=== PATIENT | female | born 1985 | race African-American/Black ===

== ENCOUNTER 2017-09-25 22:39 | Emergency (ER) | payer MEDICAID ==
[~2017-09-25] VITALS: Ht 180.3 cm; Wt 71.0 kg
[2017-09-25 22:51] VITALS: BP 108/65
== END 2017-09-26 02:53 | disposition left against medical advice (07) ==
LOC: ER 22:51
DX: Z53.21 Procedure and treatment not carried out due to patient leaving prior to being seen by health care provider (principal); Z88.2 Allergy status to sulfonamides